=== PATIENT | female | born 1975 | race Two or more races ===

== ENCOUNTER 2018-10-13 13:13 | Emergency (ER) | payer OTHER ==
[~2018-10-13] VITALS: Ht 160 cm; Wt 68.2 kg
[2018-10-13] MEDS ORDERED: CYCLOBENZAPRINE HCL 10 MG TABLET PO ONE (14:00)
[2018-10-13] MEDS ORDERED: KETOROLAC TROMETHAMINE 60 MG/2 ML VIAL IM ONE (14:00)
[2018-10-13 14:59] VITALS: BP 121/76
== END 2018-10-13 15:04 | disposition home or self-care (01) ==
LOC: EMS 13:14
DX: S39.012A Strain of muscle, fascia and tendon of lower back, initial encounter (principal); X50.0XXA Overexertion from strenuous movement or load, initial encounter; Y93.89 Activity, other specified; Y92.89 Other specified places as the place of occurrence of the external cause; Y99.8 Other external cause status
CPT/HCPCS: 96372; 99283; J1885

== ENCOUNTER 2018-11-06 14:54 | Emergency (ER) | payer OTHER ==
[~2018-11-06] VITALS: Ht 160 cm; Wt 68.2 kg
[2018-11-06] MEDS ORDERED: DEXAMETHASONE SOD PHOS 4 MG/ML 5 ML VIAL IM ONE (16:30)
[2018-11-06] MEDS ORDERED: KETOROLAC TROMETHAMINE 60 MG/2 ML VIAL IM ONE (16:30)
[2018-11-06 16:55] VITALS: BP 123/86
== END 2018-11-06 17:10 | disposition home or self-care (01) ==
LOC: EMS 14:55
DX: M77.9 Enthesopathy, unspecified (principal); M79.641 Pain in right hand; M79.642 Pain in left hand
CPT/HCPCS: 96372; 99283; J1100; J1885